=== PATIENT | female | born 1945 ===

== ENCOUNTER 2017-11-29 14:41 | Emergency (ER) | payer OTHER ==
[2017-11-29 15:07] VITALS: RESP 16; TEMP 99.3
[2017-11-29] MEDS ORDERED: Lidocaine 1% Inj (20ml) ONE ×2 (15:25→15:26)
[2017-11-29] MEDS ORDERED: TDAP Vaccine 0.5 mL Syr IM ONE (16:14)
--- NOTE | 2017-11-29 16:15 | ED PDOC ---
Arrival/HPI - General Chief Complaint: Abnormal Skin Integrity Time Seen by Provider: 11/29/17 14:54 Historian: Patient - History of Present Illness Narrative History of Present Illness (Text): 11/29/17 16:21 71-year-old female presents today with laceration to the web spacing of the fourth and fifth fingers on the left hand. Patient states she was trying to cut into a frozen ham and stabbed herself in the hand. She is complaining of pain and bleeding at the laceration site as well as numbness along the lateral aspect of the fifth finger. Patient is unsure of her last tetanus shot. No medications have been taken for pain at home. Patient denies limited range of motion of the finger. Incident occurred prior to arrival. No other complaints. Time/Duration: Prior to Arrival Past Medical History - Provider Review Nursing Documentation Reviewed: Yes - Travel History Have you recently traveled outside [place] w/in the past 3 mons?: No - Infectious Disease Hx of Infectious Diseases: None - Reproductive Menopause: Yes - Cardiac Hx Hypertension: Yes - Pulmonary Hx Asthma: Yes - Psychiatric Hx Substance Use: No - Anesthesia Hx Anesthesia: No Family/Social History - Physician Review Nursing Documentation Reviewed: Yes Family/Social History: Unknown Family HX Smoking Status: Unknown If Ever Smoked Hx Alcohol Use: No Hx Substance Use: No Allergies/Home Meds Allergies/Adverse Reactions: Allergies No Known Allergies Allergy (Verified 11/29/17 15:07) Review of Systems - Review of Systems Constitutional: absent: Fatigue, Fevers Respiratory: absent: SOB, Cough Cardiovascular: absent: Chest Pain, Palpitations Gastrointestinal: absent: Abdominal Pain, Nausea, Vomiting Musculoskeletal: Arthralgias Skin: Laceration Neurological: absent: Headache Physical Exam Vital Signs Reviewed: Yes Vital Signs Temp Pulse Resp BP Pulse Ox 11/29/17 15:02 99.3 F 98 H 16 174/84 H 99 Temperature: Afebrile Blood Pressure: Hypertensive Pulse: Regular Respiratory Rate: Normal Appearance: Positive for: Well-Appearing, Non-Toxic, Comfortable Pain Distress: None Mental Status: Positive for: Alert and Oriented X 3 - Systems Exam Head: Present: Atraumatic Neck: Present: Normal Range of Motion Respiratory/Chest: Present: Clear to Auscultation, Good Air Exchange. No: Respiratory Distress, Accessory Muscle Use Cardiovascular: Present: Regular Rate and Rhythm, Normal S1, S2. No: Murmurs Upper Extremity: Present: Normal ROM, NORMAL PULSES, Tenderness (left hand; 5th finger; there is a 2cm c-shaped laceration along the webspacing between the 4th and 5th finger extending to the volar aspect of the palm just proximal to the MCP joint. + arterial bleeding present. cap refill <2 along the promixmal middle and distal phalanx of the 4th and 5th finger. + decreased sensation along the lateral asepct of the 5th finger. + edema noted to the proximal phalanx of the finger. ), Swelling, Capillary Refill < 2s. No: Erythema, Neurovascularly Intact Neurological: Present: GCS=15, Speech Normal Skin: Present: Warm, Dry Psychiatric: Present: Alert, Oriented x 3 Medical Decision Making ED Course and Treatment: 11/29/17 16:26 Patient is nontoxic well appearing in no distress. Vital signs are stable. Wound irrigated well with high pressure irrigation pt with arterial bleeding noted along the lateral aspect of the 5th finger; dr. grace at bedside. laceration repair; 6 sutures placed. bleeding controlled. performed by dr. grace. Tetanus updated tramadol PO keflex PO xray left hand; no fx, no fb. 11/29/17 17:16 pt reassessment; pt feeling much better; after period of observation; bleeding remains controlled. cap refill <2. continued decreased sensation along the lateral aspect of 5th finger. Bacitracin and dressing applied finger splint applied. all results discussed with patient and her son. stressed the importance of f/u with the hand specialist within the next 2 days. advised taking abx as prescribed Patient was advised to keep the wound clean and dry, apply bacitracin twice daily. Advised to return immediately if signs of infection develop or return if any other concerning symptoms develop. Patient verbalizes understanding of discharge instructions and need for immediate followup. Impression: Laceration, finger Motrin every 6 hours as needed for pain keflex; one tablet 4 times daily x 7 days Keep the wound clean and dry, apply bacitracin twice daily Return in 7-10 days for suture removal Return immediately if signs of infection develop: High fevers, increasing pain, redness, swelling, purulent discharge Follow up with the hand surgeon within the next 2 days. Followup with primary care physician within the next 2 days Return if any other concerning symptoms develop Reassessment Condition: Re-examined, Improved - RAD Interpretation Radiology Orders: 11/29/17 15:16 HAND LEFT 3 VIEWS ROUTINE [RAD] Stat - Medication Orders Current Medication Orders: Discontinued Medications Cephalexin Monohydrate (Keflex) 500 mg PO STAT STA PRN Reason: Protocol Stop: 11/29/17 16:16 Last Admin: 11/29/17 16:37 Dose: 500 mg Tetanus/Reduced Diphtheria/Acell Pertussis (Boostrix Vaccine Inj) 0.5 ml IM .ONCE ONE Stop: 11/29/17 16:15 Last Admin: 11/29/17 16:37 Dose: 0.5 ml Immunization Registry Document 11/29/17 16:37 HI (Rec: 11/29/17 16:37 HI [id number]) Immunization Registry Consent Date 11/29/17 Tramadol HCl (Ultram) 50 mg PO STAT STA Stop: 11/29/17 15:17 Last Admin: 11/29/17 16:37 Dose: 50 mg MAR Pain Assessment Document 11/29/17 16:37 HI (Rec: 11/29/17 16:38 HI [id number]) Pain Reassessment Is this a pain reassessment? No Procedure: Wound Repair - Procedure Procedure: Wound Repair: laceration left 5th finger - Consent Obtained Consent obtained: Verbal - Performed by Performed by: Attending Physician (and PA) - Indications Indication(s):: Laceration - Location Finger:: Left, Little Shape:: Curvilinear Dimensions Length cm: 2cm Depth:: Subcutaneous fascia - Anesthetic Technique Anesthetic Technique: Local Local/Regional Anesthetic:: Lidocaine 1% (2cc) - Wound Examination Wound Examination:: Vascular Injury - Debris Debris:: None - Irrigated Irrigated with ml of normal saline: copious amounts of NS using high pressure irrigation - Complexity Complexity:: Simple (one layer) - Wound repair method Sutures:: # (6 total; 3 (4.0) horizonal mattress and 3 (4.0) interrupted. ) - Complications Complications: NONE - Patient tolerated procedure Patient Tolerated Procedure:: Well Disposition/Present on Arrival - Present on Arrival Any Indicators Present on Arrival: No History of DVT/PE: No History of Uncontrolled Diabetes: No Urinary Catheter: No History of Decub. Ulcer: No History Surgical Site Infection Following: None - Disposition Have Diagnosis and Disposition been Completed?: Yes Diagnosis: Laceration of finger Disposition: HOME/ ROUTINE Disposition Time: 16:30 Patient Plan: Discharge Patient Problems: Current Active Problems Problem Status Onset Laceration of finger Acute Condition: GOOD Discharge Instructions (ExitCare): Laceration Repair With Stitches (DC) Additional Instructions: Motrin every 6 hours as needed for pain keflex; one tablet 4 times daily x 7 days Keep the wound clean and dry, apply bacitracin twice daily Return in 7-10 days for suture removal Return immediately if signs of infection develop: High fevers, increasing pain, redness, swelling, purulent discharge Follow up with the hand surgeon within the next 2 days. Followup with primary care physician within the next 2 days Return if any other concerning symptoms develop Prescriptions: Cephalexin [Keflex] 500 mg PO QID #28 capsule Ibuprofen [Motrin] 600 mg PO Q6H PRN #20 tab PRN Reason: pain/fever reduction Referrals: Son Mejia MD [Staff Provider] - Follow up with primary Stacy Vigil MD [Non-Staff] - Follow up with primary Brittnee Ruiz MD [Non-Staff] - Follow up with primary Daryl Antunez MD [Staff Provider] - Follow up with primary Forms: [employer] ([place])
--- NOTE | 2017-11-29 17:17 | RAD ---
PROCEDURE: Left Hand Radiographs. HISTORY: laceration to left hand, lac webspacing 4-5th fing COMPARISON: None available. FINDINGS: BONES: No acute displaced fracture. JOINTS: No dislocation. SOFT TISSUES: Soft tissue swelling. No evidence of radiopaque foreign body. OTHER FINDINGS: None. IMPRESSION: Soft tissue swelling. No acute displaced fracture or dislocation identified. If symptoms persist, or if there is continued clinical concern, x-ray follow-up in 7-10 days should be considered.
[2017-11-29 20:29] VITALS: BP 162/87; PULSE 89; O2SAT 100
== END 2017-11-29 17:23 | disposition home or self-care (01) ==
LOC: ED 14:41
DX: S61.217A Laceration without foreign body of left little finger without damage to nail, initial encounter (principal); W26.0XXA Contact with knife, initial encounter; Y93.G1 Activity, food preparation and clean up; Y92.89 Other specified places as the place of occurrence of the external cause; Z23 Encounter for immunization

== ENCOUNTER 2017-12-08 15:05 | Emergency (ER) | payer OTHER, MEDICAID ==
[2017-12-08 15:33] VITALS: BP 137/69; PULSE 72; RESP 19; TEMP 98; O2SAT 98
--- NOTE | 2017-12-08 16:14 | ED PDOC ---
Arrival/HPI - General Historian: Patient, Family - History of Present Illness Time/Duration: Prior to Arrival, 1 week Symptom Onset: Sudden Symptom Course: Resolved <Mychal Friend - Last Filed: 12/08/17 15:57> <Josh Jay DO - Last Filed: 12/08/17 22:32> - General Chief Complaint: Suture/Staple Removal Time Seen by Provider: 12/08/17 15:33 - History of Present Illness Narrative History of Present Illness (Text): 12/08/17 15:57 71F w/ history of cutting left 5th didgit on 11/29/17. During previous ED visit, finger was sutured using horizontal mattress and interrupted sutured. Patient presents to [facility] ED for removal of sutures after 10 days. Current has full range of motion, opposen intact. Denies Fevers, chills, chest pain, shortness of breath, nasuea, vomiting, diarrhea. (Mychal Friend) Past Medical History - Provider Review Nursing Documentation Reviewed: Yes - Travel History Have you recently traveled outside [place] w/in the past 3 mons?: No - Past History Past History: No Previous - Infectious Disease Hx of Infectious Diseases: None - Cardiac Hx Hypertension: Yes - Pulmonary Hx Asthma: Yes - Psychiatric Hx Substance Use: No - Surgical History Hx Hysterectomy: Yes Hx Tonsillectomy: Yes - Anesthesia Hx Anesthesia: Yes Hx Anesthesia Reactions: No Hx Malignant Hyperthermia: No <Mychal Friend - Last Filed: 12/08/17 15:57> Family/Social History - Physician Review Nursing Documentation Reviewed: Yes Family/Social History: Other (non-contributory) Smoking Status: Unknown If Ever Smoked Hx Alcohol Use: No Hx Substance Use: No <Mychal Friend - Last Filed: 12/08/17 15:57> Allergies/Home Meds <Mychal Friend - Last Filed: 12/08/17 15:57> <Josh Jay DO - Last Filed: 12/08/17 22:32> Allergies/Adverse Reactions: Allergies No Known Allergies Allergy (Verified 12/08/17 15:33) Home Medications: Home Meds Medication Instructions Recorded Confirmed Cephalexin [cephalexin] 500 mg PO QID 12/08/17 12/08/17 Fluticasone/Salmeterol [Advair 1 puff INH DAILY 12/08/17 12/08/17 250-50 Diskus] Ibuprofen [Motrin Tab] 1 tab PO Q6 PRN 12/08/17 12/08/17 Omeprazole [Omeprazole] 1 cap PO DAILY 12/08/17 12/08/17 Review of Systems - Review of Systems Constitutional: Normal Eyes: Normal ENT: Normal Respiratory: Normal Cardiovascular: Normal Gastrointestinal: Normal Genitourinary Female: Normal Musculoskeletal: Normal Skin: Laceration (Left 5th digit) <Mychal Friend - Last Filed: 12/08/17 15:57> Physical Exam Vital Signs Reviewed: Yes Temperature: Afebrile Blood Pressure: Normal Pulse: Regular Respiratory Rate: Normal Appearance: Positive for: Well-Appearing Pain Distress: None Mental Status: Positive for: Alert and Oriented X 3 - Systems Exam Head: Present: Atraumatic Extroacular Muscles: Present: EOMI Conjunctiva: Present: Normal Mouth: Present: Moist Mucous Membranes Neck: Present: Normal Range of Motion Respiratory/Chest: Present: Good Air Exchange. No: Respiratory Distress, Accessory Muscle Use, Wheezes, Rhonchi Cardiovascular: Present: Regular Rate and Rhythm, Normal S1, S2. No: Murmurs, Tachycardic, Bradycardic Abdomen: No: Tenderness, Distention, Peritoneal Signs Upper Extremity: Present: Other (Left 5th digit laceration w/ scar. [address]) Lower Extremity: No: Edema Neurological: Present: GCS=15 Psychiatric: Present: Alert, Oriented x 3 <Mychal Friend - Last Filed: 12/08/17 15:57> Vital Signs Temp Pulse Resp BP Pulse Ox 12/08/17 15:26 98 F 72 19 137/69 98 Medical Decision Making <Mychal Friend - Last Filed: 12/08/17 15:57> <Josh Jay DO - Last Filed: 12/08/17 22:32> ED Course and Treatment: 12/08/17 16:20 sutures were removed and painted w/ betadine. Looks to be small opening, and closed w/ steri-strips and sukhwinder wrap Full ROM and strength in Left 5th digit. opponenes ab-aduction intact. Cleared for discharge. Recommend follow up w/ hand specialist (Mychal Friend) - PA / MANAGER CARDIOLOGY / Resident Statement LENNY has reviewed & agrees with the documentation as recorded. LENNY has examined the patient and agrees with the treatment plan. <Mychal Friend - Last Filed: 12/08/17 15:57> - PA / MANAGER CARDIOLOGY / Resident Statement LENNY has reviewed & agrees with the documentation as recorded. LENNY has examined the patient and agrees with the treatment plan. <Josh Jay DO - Last Filed: 12/08/17 22:32> Disposition/Present on Arrival - Present on Arrival Any Indicators Present on Arrival: No History of DVT/PE: No History of Uncontrolled Diabetes: No Urinary Catheter: No History of Decub. Ulcer: No History Surgical Site Infection Following: None - Disposition Have Diagnosis and Disposition been Completed?: Yes Disposition Time: 16:23 Patient Plan: Discharge <Mycahl Friend - Last Filed: 12/08/17 15:57> - Disposition Disposition Time: 15:50 <Josh Jay DO - Last Filed: 12/08/17 22:32> - Disposition Diagnosis: Visit for suture removal Disposition: HOME/ ROUTINE Condition: GOOD Discharge Instructions (ExitCare): Stitches Removal Additional Instructions: Thank you for letting us take care of you today. The emergency medical care you received today was directed at your acute symptoms. If you were prescribed any medication, please fill it and take as directed. It may take several days for your symptoms to resolve. Return to the Emergency Department if your symptoms worsen, do not improve, or if you have any other problems. Please contact your doctor or call one of the physicians/clinics you have been referred to that are listed on the Patient Visit Information form that is included in your discharge packet. Bring any paperwork you were given at discharge with you along with any medications you are taking to your follow up visit. Our treatment cannot replace ongoing medical care by a primary care provider (PCP) outside of the emergency department. Thank you for allowing the [facility] team to be part of your care today. Follow up with your doctor this week for re-evaluation and further management. Forms: [employer] ([place]ian)
== END 2017-12-08 16:14 | disposition home or self-care (01) ==
LOC: ED 15:05
DX: Z48.02 Encounter for removal of sutures (principal); I10 Essential (primary) hypertension